=== PATIENT | male | born 1955 | race Two or more races ===

== ENCOUNTER 2022-04-05 22:28 | Inpatient (IN) | payer MEDICARE, OTHER ==
[~2022-04-05] VITALS: Ht 157.5 cm; Wt 67.6 kg
--- NOTE | 2022-04-05 22:50 | NUR ---
TO ER BED 9. BIBRA 100 FROM [facility] FOR C/O RUQ ABD PAIN X 2 DAYS. PT IS ALERT AND ORIENTED. RR EVEN AND NON LABORED. NOT AMBUALTORY. CONNECTED TO POX AND HEART MONITOR. AWAITING MD FERRIS
[2022-04-05] MEDS ORDERED: IV NS 0.9% 1,000 ML BAG IV ONE (23:00)
[2022-04-05] MEDS ORDERED: ONDANSETRON HCL/PF 4 MG/2 ML VIAL IVP ONE (23:00)
[2022-04-05] MEDS ORDERED: MORPHINE SULFATE INJ 2 MG/ML DISP.SYRIN IV ONE (23:00)
[2022-04-05] MEDS ORDERED: ONDANSETRON HCL/PF 4 MG/2 ML VIAL ONE (23:01)
[2022-04-05] MEDS ORDERED: MORPHINE SULFATE INJ 2 MG/ML DISP.SYRIN ONE (23:01)
--- NOTE | 2022-04-05 23:21 | NUR ---
PT UNABLE TO PROVIDE URINE SAMPLE AT THIS TIME, URINAL PROVIDED AT BEDSIDE
--- NOTE | 2022-04-05 23:21 | NUR ---
BLOOD COLLECTED AND SENT TO LAB
--- NOTE | 2022-04-05 23:21 | NUR ---
PATTI RIGGS AT BEDSIDE FOR EKG
--- NOTE | 2022-04-05 23:21 | NUR ---
IV LINE ESTABLISHED, LAC20G
[2022-04-05 23:30] LABS: BASOPHILS % (AUTO) 0.1 % (0.0-2.0); EOSINOPHILS % (AUTO) 1.3 % (0.0-6.0); HEMATOCRIT 38 % (39-51); HEMOGLOBIN 11.8 g/dL (13.5-17.5); LYMPHOCYTES # (AUTO) 0.9 K/uL (0.8-4.8); MEAN CORPUSCULAR HGB CONC 31 g/dl (31.0-36.0); MEAN CORPUSCULAR VOLUME 81 fL (80-96); MONOCYTES # (AUTO) 0.9 K/uL (0.1-1.30); MONOCYTES % (AUTO) 10.2 % (2.0-12.0); NEUTROPHILS # (AUTO) 6.8 K/uL (1.8-8.9); NEUTROPHILS % (AUTO) 78.4 % (43.0-81.0); PLATELET COUNT (AUTO) 126 K/uL (150-450); WHITE BLOOD COUNT (AUTO) 8.7 K/uL (4.3-11.0)
[2022-04-05 23:39] LABS: CALCIUM, SERUM 8.9 mg/dL (8.5-10.1); CARBON DIOXIDE 25 mmol/L (21-32); CHLORIDE 109 mmol/L (98-107); CREATININE 1.5 mg/dL (0.6-1.3); GLUCOSE 117 mg/dL (74-106); POTASSIUM 3.7 mmol/L (3.5-5.1); SODIUM SERUM 140 mmol/L (136-145); UREA NITROGEN, BLOOD 33 mg/dL (7-18)
[2022-04-05 23:45] LABS: ALANINE AMINOTRANSFERASE 18 U/L (12-78); ALBUMIN 3.5 g/dL (3.4-5.0); ALKALINE PHOSPHATASE 78 U/L (46-116); ASPARTATE AMINOTRANSFERASE 15 U/L (15-37); BILIRUBIN,DIRECT 0.1 mg/dL (0.0-0.2); BILIRUBIN,TOTAL 0.4 mg/dL (0.2-1.0); LIPASE 883 U/L (73-393); TOTAL PROTEIN, SERUM 7.5 g/dL (6.4-8.2)
--- NOTE | 2022-04-06 00:31 | NUR ---
PT UNABLE TO PROVIDE URINE, DOES NOT WANT CANTU
--- NOTE | 2022-04-06 00:31 | NUR ---
COVID SWAB COLLECTED AND SENT TO LAB
--- NOTE | 2022-04-06 03:02 | NUR ---
URINE SAMPLE COLLECTED
[2022-04-06 03:59] LABS: BILIRUBIN,URINE NEGATIVE (NEGATIVE); COLOR,URINE YELLOW (YELLOW); LEUKOCYTE ESTERASE ,URINE NEGATIVE (NEGATIVE); NITRITE, URINE NEGATIVE (NEGATIVE); PROTEIN,URINE 30 mg/dl (NEGATIVE); UGLUCOSE NEGATIVE (NEGATIVE); UROBILINOGEN,URINE 0.2 EU/dL (0.2)
[2022-04-06 04:21] LABS: BACTERIA,URINE Rare /HPF (None Seen); RBC,URINE 21-50 /HPF (0-2); SQUAMOUS EPITHELIAL CELL,UR Few /HPF (None Seen)
--- NOTE | 2022-04-06 05:57 | NUR ---
PT IS RESTING COMFORTABLY IN BED WITH EYES CLOSED, RR EVEN AND NONLABORED. CONNECTED TO MONITOR.
[2022-04-06] MEDS ORDERED: ACETAMINOPHEN 650 MG/SUPP.RECT RC PRN (06:00)
[2022-04-06] MEDS ORDERED: ONDANSETRON HCL/PF 4 MG/2 ML VIAL IVP PRN ×2 (06:00→08:30)
[2022-04-06] MEDS ORDERED: IV NS 0.9% 1,000 ML IV PRN (06:00)
[2022-04-06] MEDS ORDERED: MORPHINE SULFATE INJ 2 MG/ML DISP.SYRIN IV PRN ×2 (06:00→08:30)
[2022-04-06 06:14] LABS: BASOPHILS % (AUTO) 0.3 % (0.0-2.0); EOSINOPHILS % (AUTO) 0.4 % (0.0-6.0); HEMATOCRIT 34 % (39-51); HEMOGLOBIN 10.7 g/dL (13.5-17.5); LYMPHOCYTES # (AUTO) 0.8 K/uL (0.8-4.8); LYMPHOCYTES % (AUTO) 11.1 % (20.0-44.0); MEAN CORPUSCULAR HGB CONC 31 g/dl (31.0-36.0); MEAN CORPUSCULAR VOLUME 81 fL (80-96); MONOCYTES # (AUTO) 0.8 K/uL (0.1-1.30); NEUTROPHILS # (AUTO) 5.5 K/uL (1.8-8.9); NEUTROPHILS % (AUTO) 77.2 % (43.0-81.0); PLATELET COUNT (AUTO) 116 K/uL (150-450); RED BLOOD CELL COUNT(AUTO) 4.26 MIL/uL (4.5-6.0); WHITE BLOOD COUNT (AUTO) 7.1 K/uL (4.3-11.0)
[2022-04-06 07:14] LABS: CALCIUM, SERUM 8.6 mg/dL (8.5-10.1); CREATININE 1.8 mg/dL (0.6-1.3); MAGNESIUM 2.2 mg/dL (1.8-2.4); PHOSPHORUS 4.5 mg/dL (2.5-4.9); POTASSIUM 4.1 mmol/L (3.5-5.1)
--- NOTE | 2022-04-06 07:15 | NUR ---
Received pt from [facility] FUENTES pt awake fallow command respiration spont and easy
[2022-04-06] MEDS: TAMSULOSIN 0.4 MG CAP.SR.24H PO SCH ×2 (08:30→21:24)
[2022-04-06] MEDS ORDERED: ACETAMINOPHEN 325 MG TABLET PO PRN (08:30)
--- NOTE | 2022-04-06 08:54 | NUR ---
ROOM 320-1
[2022-04-06] MEDS ORDERED: FLUT16SP16 (08:57)
[2022-04-06] MEDS ORDERED: POLY17PO4 PO (08:57)
[2022-04-06] MEDS ORDERED: LATA2.5D15 EACHEYE (08:57)
[2022-04-06] MEDS ORDERED: BICT1TAB PO (08:57)
[2022-04-06] MEDS ORDERED: METH-647 PO (08:57)
[2022-04-06] MEDS ORDERED: PANT40TA49 PO (08:57)
[2022-04-06] MEDS ORDERED: BRIM5DRO3 EACHEYE (08:57)
[2022-04-06] MEDS ORDERED: FOLI1TAB26 PO (08:57)
[2022-04-06] MEDS ORDERED: ACET250T3 PO (08:57)
[2022-04-06] MEDS ORDERED: PRED5DRO17 LEFTEYE (08:57)
[2022-04-06] MEDS ORDERED: KETOROLAC TROMETHAMINE INJ 30 MG/ML VIAL IM ONE (09:00)
--- NOTE | 2022-04-06 09:00 | NUR ---
HAND OFF MARTY FUENTES TO ROOM 320-1 VIA MELISA LOPEZ
[2022-04-06 09:45] VITALS: BP 130/72
--- NOTE | 2022-04-06 09:45 | NUR ---
MS EQUIPMENT SALES SPECIALIST NOTES; RECEIVED REPORT BY PHONE FROM FREDY. ADMITTED TO UNIT, 0941. TRANSPORTED VIA GURNEY BY ER STAFF. VITALS WNL: BP- 131/72, HR 61, TEMP 97.9, O2 SAT- 98% ON 2 L O2 VIA NC. A/O X3, ABLE TO VERBALIZE NEEDS. PT ORIENTED TO UNIT AND STAFF. NO NOTED S/S OF SOB AND ACUTE DISTRESS. DENIES PAIN AT THE MOMENT. IV ACCESS AT R AC #20, SL, PATENT INTACT. SKIN IS INTACT. RIGHT SIDED WEAKNESS NOTED, PT REPORTS "I CAN WALK SLOWLY BUT I NEED A WALKER", INFORMED MD FOR PT EVAL. SAFETY MEASURES IN PLACE. HOB ELEVATED, LOCKED AT LOWEST POSITION, SIDERAILS UP X2. CALL LIGHT, TABLE AND URINAL WITHIN REACH. ENCOURAGED PT TO USE CALL LIGHT FOR ASSISTANCE, PT VERBALIZED UNDERSTANDING; WILL CONT WITH PLAN OF CARE DURING SHIFT.
[2022-04-06] MEDS: IV NS 0.9% 1,000 ML IV SCH ×3 (10:22→17:30)
[2022-04-06] MEDS: CEFTRIAXONE 1 G in IV D5W 50 ML IV SCH (12:48)
--- NOTE | 2022-04-06 13:41 | NUR ---
NS at 1413 not administered, NS bag is still not finished.
[2022-04-06 16:00] VITALS: BP 115/59
--- NOTE | 2022-04-06 19:00 | NUR ---
MS RN NOTES: DURING REPORT AT [facility], PT STARTED REPORTING SOB. INCREASED O2 FROM 2L TO 5L, CONTACTED RT AND MD FOR ORDER. FLUSHED NARES WITH N/S. PT SATURATING @ 95-98%. PER MD, GO BACK TO 2L OF O2, ORDERED CONGESTION MEDICATION, BMP AND STAT CRX. RT TREATMENT DONE. PT CURRENTLY STABLE ON 2L, SATURATING AT 97%. S/S OF SOB SUBSIDED, ENDORSED TO PM SHIFT.
--- NOTE | 2022-04-06 19:30 | NUR ---
MS RN OPENING NOTES RECEIVED PATIENT LYING IN BED, HOB ELEVATED. A/O X4. C/O , ON O2 AT 3LPM VIA NASAL CANULA, PLACED TO 5LPM SATURATING AT 95%-97%. IN MILD DISTRESS. NO C/O PAIN AT THIS TIME. HAS LEFT ANTECUBITAL IV ACCESS #20G WITH NS RUNNING AT 175 ML/HR, STOPPED TO ENSURE IS NOT CAUSED BY FLUID OVERLOAD. NO S/S OF INFILTRATION NOTED. SAFETY PRECAUTIONS IN PLACE: BED LOW AND LOCKED, SIDE RAILS UP X2, CALL LIGHT WITHIN REACH. WILL CONTINUE POC.
[2022-04-06 20:00] VITALS: BP 129/67
--- NOTE | 2022-04-06 20:10 | NUR ---
MS RN CLOSING NOTES: PT AWAKE, A/OX3 ABLE TO VERBALIZE NEEDS. NO NOTED S/S OF SOB AND ACUTE DISTRESS AT THE MOMENT. DENIES PAIN AT THIS TIME. IV ACCESS AT R AC #20, NS @ 175ML/HR ON PAUSE. SAFETY MEASURES IN PLACE. HOB ELEVATED, LOCKED AT LOWEST POSITION, SIDERAILS UP X2. CALL LIGHT, TABLE AND URINAL WITHIN REACH. ENCOURAGED PT TO USE CALL LIGHT FOR ASSISTANCE, PT VERBALIZED UNDERSTANDING; ENDORSED TO PM SHIFT.
--- NOTE | 2022-04-06 20:28 | NUR ---
MS FUENTES NOTES CXR RESULT RECEIVED - PNEUMONITIS. NOTIFIED SANTOS MARTIN WITH NO NEW ORDER. AWAITING FOR BNP RESULT. Addendum: 04/06/22 at 2219 by November MARCUS FUENTES BNP WNL
[2022-04-06] MEDS: GUAIFENESIN LA 600 MG TABLET.SA PO SCH (21:24)
--- NOTE | 2022-04-06 21:34 | NUR ---
MS RN NOTES ACCIDENTALLY DROPPED THE SYRINGE W/ HEPARIN. TOOK ANOTHER VIAL FROM [employer].
[2022-04-06] MEDS: HEPARIN SODIUM, PORCINE 5000 UNITS/1 ML VIAL SQ SCH (21:35)
--- NOTE | 2022-04-06 21:48 | NUR ---
MS RN NOTES PATIENT IS CONGESTED AND REFUSING TO PUT HIS NASAL CANULA ON. HE SAID IT IS HURTING HIS THROAT. EXPLAINED IMPORTANCE BUT STILL REFUSED. PLACED ON O2 MONITOR, SATURATING AT 88%-95% ON ROOM AIR. MOUTH SUCTION DONE. HOB ELEVATED.
[2022-04-07] MEDS: IV NS 0.9% 1,000 ML IV SCH ×4 (02:24→20:31)
--- NOTE | 2022-04-07 05:08 | NUR ---
MS RN NOTES PATIENT C/O D/T NASAL CONGESTION, SATURATING AT 93%-95% ON RA. SALINE SPRAY DONE, HOB ELEVATED. NOTIFIED SANTOS PSYCH THERAPIST AND ORDERED MUCINEX 600MG PO Q12H, ACTIVE ALREADY IN EMAR. NO BREATHING TX ORDERED. RT ASSESSED THE PT WELL, PT IS STABLE. WILL CONTINUE TO MONITOR.
--- NOTE | 2022-04-07 06:16 | NUR ---
MS RN CLOSING NOTES PATIENT LYING IN BED AWAKE, HOB ELEVATED. A/O X4, ABLE TO VERBALIZE NEEDS. C/O D/T NASAL CONGESTION, REFUSED O2. SATURATING AT 95% ON RA. NOT IN ACUTE DISTRESS. DENIES PAIN. AFEBRILE. MILD ABDOMINAL DISTENTION NOTED. HAS LEFT ANTECUBITAL IV ACCESS #20G WITH NS RUNNING AT 175 ML/HR. INTACT, PATENT AND FLUSHING. CLEAR DARK YELLOW URINE NOTED, OUTPUT OF 600 ML. ALL DUE MEDS GIVEN AND NEEDS ATTENDED. SAFETY PRECAUTIONS MAINTAINED. WILL ENDORSE TO NEXT SHIFT FOR JAYA.
[2022-04-07 06:51] LABS: BASOPHILS % (AUTO) 0.3 % (0.0-2.0); EOSINOPHILS % (AUTO) 3.2 % (0.0-6.0); HEMATOCRIT 31 % (39-51); HEMOGLOBIN 9.5 g/dL (13.5-17.5); LYMPHOCYTES # (AUTO) 0.9 K/uL (0.8-4.8); MEAN CORPUSCULAR HGB CONC 30 g/dl (31.0-36.0); MEAN CORPUSCULAR VOLUME 83 fL (80-96); MONOCYTES # (AUTO) 0.5 K/uL (0.1-1.30); MONOCYTES % (AUTO) 11.1 % (2.0-12.0); NEUTROPHILS # (AUTO) 2.7 K/uL (1.8-8.9); NEUTROPHILS % (AUTO) 64.4 % (43.0-81.0); PLATELET COUNT (AUTO) 95 K/uL (150-450); RED BLOOD CELL COUNT(AUTO) 3.79 MIL/uL (4.5-6.0); WHITE BLOOD COUNT (AUTO) 4.1 K/uL (4.3-11.0)
[2022-04-07 07:16] LABS: ALBUMIN 2.8 g/dL (3.4-5.0); BILIRUBIN,TOTAL 0.4 mg/dL (0.2-1.0); CREATININE 1.1 mg/dL (0.6-1.3); MAGNESIUM 2.2 mg/dL (1.8-2.4); PHOSPHORUS 2.8 mg/dL (2.5-4.9); POTASSIUM 3.6 mmol/L (3.5-5.1); TOTAL PROTEIN, SERUM 6.2 g/dL (6.4-8.2)
--- NOTE | 2022-04-07 07:27 | NUR ---
MS RN OPENING NOTES RECEIVED PATIENT IN BED AWAKE, A/O X4. HOB ELEVATED. ABLE TO MAKE NEEDS KNOWN, DENIES PAIN OR ANY DISCOMFORTS AT THIS TIME. ON O2 AT 2LPM VIA NASAL CANULA, TOLERATING WELL, BREATHING EVEN AND UNLABORED. IV ACCESS ON LAC #20G INTACT WITH NS RUNNING AT 175 ML/HR, NO S/S OF INFILTRATION NOTED. SAFETY PRECAUTIONS MAINTAINED: BED LOW AND LOCKED, SIDE RAILS UP X2, ALARM ON, CALL LIGHT AND TRAY TABLE WITHIN REACH OF PT. WILL CONTINUE POC.
--- NOTE | 2022-04-07 07:30 | NUR ---
PATIENT IN BED, NOT IN ANY APPARENT RESPIRATORY DISTRESS. ENDORSED PATIENT TO DAYSHIFT NURSE FOR JAYA.
[2022-04-07 08:00] VITALS: BP 139/75
[2022-04-07] MEDS: GUAIFENESIN LA 600 MG TABLET.SA PO SCH ×2 (10:05→20:41)
[2022-04-07] MEDS: HEPARIN SODIUM, PORCINE 5000 UNITS/1 ML VIAL SQ SCH ×2 (10:06→20:40)
[2022-04-07] MEDS ORDERED: METHOCARBAMOL (500MG) 500 MG TABLET PO PRN (11:00)
--- NOTE | 2022-04-07 11:24 | NUR ---
RN NOTES RAPID INFLUENZA SWAB DONE AND BROUGHT SPECIMEN TO LAB. WILL FOLLOW-UP RESULTS
[2022-04-07] MEDS: CEFTRIAXONE 1 G in IV D5W 50 ML IV SCH (11:49)
[2022-04-07] MEDS: AZITHROMYCIN 250 MG TABLET PO SCH (11:49)
[2022-04-07] MEDS: FLUTICASONE PROPIONATE 16 GM BOTTLE NS SCH (11:49)
[2022-04-07] MEDS: prednisoLONE ACETATE 1% SUSP 5 ML BOTTLE LEFTEYE SCH ×3 (11:54→21:16)
[2022-04-07 12:00] LABS: EOSINOPHILS % (MANUAL) 3 % (0-4); LYMPHOCYTES % (MANUAL) 19 % (16-48); MONOCYTES % (MANUAL) 9 % (0-11.0); NEUTROPHILS % (MANUAL) 69 (42-76)
[2022-04-07] MEDS ORDERED: PSEUDOEPHEDRINE HCL 30 MG TABLET PO ONE (12:00)
[2022-04-07] MEDS: BRIMONIDINE TARTRATE OPHT SOLN 5 ML BOTTLE EACHEYE SCH ×2 (13:33→20:41)
[2022-04-07 16:00] VITALS: BP 144/75
[2022-04-07] MEDS: acetaZOLAMIDE 250 MG TABLET PO SCH (16:58)
--- NOTE | 2022-04-07 17:46 | NUR ---
RN NOTES PHARMACY CALLED ABOUT PT'S HIV MEDICATION, BIKTARVY TAB, STATING THAT IT IS NOT AVAILABLE AND WAS ASKING IF ANYBODY CAN BRING THE MEDICATION FROM PT'S FACILITY. PT WAS ASKED AND STATES THAT THERE IS NOBODY THAT CAN BRING THE MEDICATION. PT ALSO STATES THAT HE IS OKAY NOT TAKING THE MEDICATION WHILE HOSPITALIZED. PHARMACY INFORMED.
--- NOTE | 2022-04-07 18:31 | NUR ---
MS RN CLOSING NOTES PATIENT SITTING ON CHAIR BY BEDSIDE AT THIS TIME. A/O X4. ABLE TO MAKE NEEDS KNOWN. ON SUPPLEMENTAL O2 AT 2LPM VIA N/C, TOLERATING WELL, BREATHING EVEN AND UNLABORED AT THIS TIME, EDUCATED PT NOT TO REMOVE O2 TO PREVENT SOB. IV ACCESS ON LAC #20G INTACT WITH IVF OF NS @ 175 ML/HR, NO S/S OF INFILTRATION NOTED. ALL NEEDS AND CARE PROVIDED WELL. SAFETY PRECAUTIONS MAINTAINED: BED LOW AND LOCKED, SIDE RAILS UP X2, ALARM ON, CALL LIGHT AND TRAY TABLE WITHIN REACH OF PT. WILL ENDORSE JAYA TO DIGITAL MEASUREMENT ADVISOR NURSE.
--- NOTE | 2022-04-07 19:30 | NUR ---
MS RN OPENING NOTES RECEIVED PATIENT SITTING IN CHAIR BY BEDSIDE. A/O X3, KAW. ON O2 AT 2LPM VIA NASAL CANULA, LABORED AND DEEP BREATHING NOTED. STILL C/O NASAL CONGESTION. NOT IN APPARENT DISTRESS. DENIES PAIN AT THIS TIME. HAS LEFT ANTECUBITAL IV ACCESS #20G WITH NS RUNNING AT 175 ML/HR. NO S/S OF INFILTRATION NOTED. PATIENT AWARE TO ASK ASSISTANCE FROM STAFF WHEN TRANSFERRING. SAFETY PRECAUTIONS IN PLACE: BED LOW AND LOCKED, SIDE RAILS UP X2, CALL LIGHT WITHIN REACH. WILL CONTINUE POC.
[2022-04-07 20:00] VITALS: BP 148/70
[2022-04-07] MEDS: TAMSULOSIN 0.4 MG CAP.SR.24H PO SCH (21:16)
[2022-04-07] MEDS ORDERED: LATANOPROST EYE DROP 0.005% 2.5 ML BOTTLE EACHEYE SCH (22:00)
[2022-04-08] MEDS: IV NS 0.9% 1,000 ML IV SCH ×2 (01:32→06:32)
[2022-04-08] MEDS: BRIMONIDINE TARTRATE OPHT SOLN 5 ML BOTTLE EACHEYE SCH ×2 (04:17→13:00)
--- NOTE | 2022-04-08 06:56 | NUR ---
MS RN CLOSING NOTES PATIENT LAYING IN BED ASLEEP, EASY TO AROUSE. HOB ELEVATED. A/O X3. BREATHING EVEN AND NON-LABORED ON ROOM AIR. REFUSED SUPPLEMENTAL O2 AT THIS TIME. NO C/O PAIN OR DISCOMFORT. AFEBRILE. HAS LEFT HAND IV ACCESS #20G WITH NS RUNNING AT 175 ML/HR. INTACT, PATENT AND FLUSHING. 2-PERSON ASSIST WHEN TRANSFERRING TO/FROM BED/CHAIR. ALL DUE MEDS GIVEN AND NEEDS ATTENDED. SAFETY PRECAUTIONS MAINTAINED. WILL ENDORSE TO NEXT SHIFT FOR JAYA.
[2022-04-08 07:00] VITALS: BP 121/71
[2022-04-08] MEDS ORDERED: Tamsulosin PO (07:21)
--- NOTE | 2022-04-08 07:21 | NUR ---
MS RN OPENING NOTES: RECEIVED PATIENT, ASLEEP, EASILY ROUSED. HOB ELEVATED. A/O X3. BREATHING EVEN AND NON-LABORED ON ROOM AIR. REFUSED SUPPLEMENTAL O2 AT THIS TIME. NO C/O PAIN OR DISCOMFORT. HAS IV ACCESS @ L HAND #20G WITH NS RUNNING AT 175 ML/HR, INTACT, PATENT AND FLUSHING. SAFETY PRECAUTIONS MAINTAINED, SIDE RAILS UP X2. TABLE, URINAL AND CALL LIGHT WITHIN REACH, BSC AND WHEELCHAIR AT BEDSIDE; WILL CONT WITH PLAN OF CARE DURING SHIFT.
[2022-04-08] MEDS ORDERED: IV NS 0.9% 1,000 ML IV SCH (07:30)
[2022-04-08] MEDS ORDERED: PANTOPRAZOLE 40 MG TABLET.DR PO SCH (07:30)
[2022-04-08] MEDS ORDERED: DOXY100C2 PO (08:28)
[2022-04-08] MEDS: GUAIFENESIN LA 600 MG TABLET.SA PO SCH (08:42)
[2022-04-08] MEDS: acetaZOLAMIDE 250 MG TABLET PO SCH (08:42)
[2022-04-08] MEDS: HEPARIN SODIUM, PORCINE 5000 UNITS/1 ML VIAL SQ SCH (08:45)
[2022-04-08] MEDS: prednisoLONE ACETATE 1% SUSP 5 ML BOTTLE LEFTEYE SCH ×2 (08:48→12:00)
[2022-04-08] MEDS ORDERED: MULTIVITAMIN/LUTEIN/MINERALS 1 TAB PO SCH (09:00)
[2022-04-08] MEDS: FLUTICASONE PROPIONATE 16 GM BOTTLE NS SCH (09:22)
[2022-04-08] MEDS: AZITHROMYCIN 250 MG TABLET PO SCH (11:16)
[2022-04-08] MEDS: CEFTRIAXONE 1 G in IV D5W 50 ML IV SCH (12:00)
--- NOTE | 2022-04-08 12:30 | NUR ---
MS TORCH STRAIGHTENER NOTES: PT STABLE FOR DC. NO S/S OF SOB OR ACUTE DISTRESS, VITALS WNL. DISCUSSED DC INSTRUCTIONS, NEW MEDICATIONS, ADDRESSED QUESTIONS APPROPRIATE, PT VERBALIZED UNDERSTANDING. PT SIGNED DC INSTRUCTIONS, BELONGINGS LIST. PT REFUSED TO GO TO NEW SNF, PT STATES " I NEED TO GO BACK TO MY [facility], I HAVE MY BELONGINGS THERE". RN EXPLAINED THAT NEW FACILITY WILL FACILITATE TRANSFER OF BELONGINGS. PT STILL REFUSED, STATES " MY MONEY AND MY STUFF WILL GET LOST BECAUSE I KEEP MOVING". RN MADE CM AND CHARGE AWARE. CM CAME TO UNIT AND SPOKE TO PT AND [facility]. PT, CM AND CEDAR'S AGREED THAT PT WILL GO BACK TO PREVIOUS LIVING ARRANGEMENT WITH HOME HEALTH. [facility] WILL TRANSPORT PT, RUN# [id number], [address].
== END 2022-04-08 12:30 | DRG 438 ==
LOC: ER 22:31 → TRANSITION 04-06 00:37 → MED 04-06 09:09
PROVIDERS: ADMIT Internal Medicine; ATTEND Internal Medicine
DX: K85.90 Acute pancreatitis without necrosis or infection, unspecified (principal); K76.7 Hepatorenal syndrome; N17.0 Acute kidney failure with tubular necrosis; I69.351 Hemiplegia and hemiparesis following cerebral infarction affecting right dominant side; N13.2 Hydronephrosis with renal and ureteral calculous obstruction; K70.30 Alcoholic cirrhosis of liver without ascites; I10 Essential (primary) hypertension; Z20.822 Contact with and (suspected) exposure to COVID-19; Z88.0 Allergy status to penicillin; D64.9 Anemia, unspecified; Z86.19 Personal history of other infectious and parasitic diseases
CPT/HCPCS: 36415; 71045-TC; 80048-TC; 80053-TC; 80061-TC; 80076-TC; 81001; 83605-TC; 83690-TC; 83735-TC; 83880; 84100-TC; 84484-TC; 85025-TC; 85730-TC; 86140-TC; 87081-TC; 92526; 92611-TC; 97112-TC; 97116-TC; 97530-TC; G0378; J0696; J1644; J2270; J2405; J7030; J7060